=== PATIENT | female | born 1955 | race Caucasian/White ===

== ENCOUNTER 2024-02-29 14:50 | Outpatient (CLI) | payer OTHER ==
[2024-02-29 15:16] LABS: PH,URINE 5.5 (5.0-8.0); URINE APPEARANCE Cloudy; URINE BILIRRUBIN Negative (NEGATIVE); URINE BLOOD NHT; URINE COLOR Yellow; URINE GLUCOSE Negative (NEGATIVE); URINE KETONE Negative (NEGATIVE); URINE LEUKOCYTE Large; URINE NITRATE Negative; URINE PROTEIN Negative (NEGATIVE); URINE UROBILINOGEN 0.2 E.U./dl
[2024-02-29 15:19] LABS: URINE BACTERIA 1418.7 uL (0.0-1933); URINE RBC 13.7 uL (0.0-20.8); URINE WBC 1039.4 uL (0.0-23.2)
[2024-02-29 15:50] LABS: URINE CAST 0.61 uL (0.0-1.40)
== END 2024-02-29 14:55 | disposition home or self-care (01) ==
LOC: LAB 14:50
PROVIDERS: ATTEND Urology
DX: N39.0 Urinary tract infection, site not specified (principal)

== ENCOUNTER 2024-03-03 11:56 | Inpatient (IN) | payer OTHER ==
[~2024-03-03] VITALS: Ht 157.5 cm; Wt 68.9 kg
[2024-03-03] MEDS ORDERED: CARVEDILOL12.5 MG (14:45)
[2024-03-03] MEDS ORDERED: LANOXIN125 MCG PO (14:46)
[2024-03-03] MEDS ORDERED: LASIX20 MG PO (14:46)
[2024-03-03] MEDS ORDERED: HYDRALAZINE HCL50 MG PO (14:46)
[2024-03-03] MEDS ORDERED: ATORVASTATIN CA80 MG PO (14:47)
[2024-03-06] MEDS ORDERED: CEFTRIAXONE SODIUM 2,000 MG VIAL IV ONE (08:30)
[2024-03-06] MEDS ORDERED: BUPIVACAINE HCL 30 ML VIAL IJ ONE (08:30)
[2024-03-06] MEDS ORDERED: LIDOCAINE HCL 1%/EPINEPHRINE 20ML VIAL IJ ONE (08:30)
[2024-03-06] MEDS ORDERED: METRONIDAZOLE/SODIUM CHLORIDE 500 MG/100 ML PIGGYBACK IV ONE (08:30)
[2024-03-06] MEDS ORDERED: MORPHINE SULFATE 4 MG/ML CARTRIDGE IV PRN (09:15)
[2024-03-06] MEDS ORDERED: 0.9 % SODIUM CHLORIDE 1,000 ML IV SCH (09:15)
[2024-03-06] MEDS ORDERED: DEXTROSE 50 % IN WATER 0.5 G/ML DISP.SYRIN IV PRN (09:15)
[2024-03-06] MEDS ORDERED: ONDANSETRON HCL 2 MG/ML VIAL IV PRN (09:15)
[2024-03-06] MEDS ORDERED: SUGAMMADEX SODIUM 200 MG/2 ML VIAL IV ONE (09:15)
[2024-03-06] MEDS ORDERED: OxyCODONE HCL 5 MG TABLET (ROXICODONE) PO PRN (09:15)
[2024-03-06] MEDS ORDERED: MORPHINE SULFATE 4 MG/ML VIAL IV ONE ×2 (10:05→10:35)
[2024-03-06] MEDS ORDERED: ONDANSETRON HCL 2 MG/ML VIAL IV ONE (10:55)
[2024-03-06 11:37] LABS: HEMATOCRIT 34.4 % (36.0-45.00); MEAN CORPUSCULAR HEMOGLOBIN 26.5 pg (27.00-32.0); MEAN CORPUSCULAR HGB CONC 31.9 g/dl (32.0-36.0); PLATELET COUNT 425 K/uL (150-450); RED BLOOD COUNT 4.15 M/uL (4.00-6.00)
[2024-03-06 12:53] LABS: ALBUMIN 2.8 gm/dL (3.4-5.0); CALCIUM 8.9 mg/dL (8.5-10.1); CREATININE SERUM 0.83 mg/dL (0.55-1.02); GFR 67.96; MAGNESIUM 1.9 mg/dL (1.8-2.4); PHOSPHOROUS 2.8 mg/dL (2.5-4.9); POTASSIUM 4.32 mEq/L (3.5-5.1)
[2024-03-06] MEDS ORDERED: HYOSCYAMINE SULFATE 0.125 MG TAB.SUBL SL SCH (13:00)
[2024-03-06] MEDS ORDERED: ACETAMINOPHEN 500 MG GEL..CAP PO SCH (14:00)
[2024-03-06] MEDS ORDERED: ENALAPRILAT DIHYDRATE 1.25 MG/ML VIAL IV PRN (14:30)
[2024-03-06] MEDS ORDERED: POLYETHYLENE GLYCOL 3350 17 GM BLIST.PACK PO SCH (17:00)
[2024-03-06] MEDS ORDERED: METRONIDAZOLE/SODIUM CHLORIDE 500 MG/100 ML PIGGYBACK IV SCH (17:00)
[2024-03-06] MEDS ORDERED: GABAPENTIN 300 MG CAPSULE PO SCH (17:00)
[2024-03-06 17:11] VITALS: BP 123/67; O2SAT 97
[2024-03-06 20:55] LABS: ABG PH 7.413 (7.35-7.45); ABG PO2 71.2 mmHg (80-100); ABG pCO2 34.7 mmHg (35-45); BASE EXCESS -2.2 mmol/l; BICARBONATE 21.6 mmol/l (23-25); SaO2 94.2 %; Tco2 22.7 mmol/l
[2024-03-06] MEDS ORDERED: CELECOXIB 200 MG CAPSULE PO SCH (21:00)
[2024-03-06] MEDS ORDERED: FAMOTIDINE/PF 20 MG/2 ML VIAL IV PUSH SCH (21:00)
[2024-03-06] MEDS ORDERED: CARVEDILOL 12.5 MG TABLET PO SCH (21:00)
[2024-03-06 21:14] LABS: allen test SATISFACTORY; o2 21 %; puncture site RADIAL LEFT
[2024-03-06 23:45] VITALS: BP 102/59; O2SAT 93
[2024-03-07] VITALS (7 sets, daily range): BP systolic 99–100; BP diastolic 52–63; O2SAT 93–98
[2024-03-07 08:02] LABS: HEMATOCRIT 31.5 % (36.0-45.00); HEMOGLOBIN 10.2 g/dL (12.0-15.00); MEAN CELL VOLUME 82.9 fL (80.00-100.00); MEAN CORPUSCULAR HEMOGLOBIN 26.8 pg (27.00-32.0); MEAN CORPUSCULAR HGB CONC 32.4 g/dl (32.0-36.0); PLATELET COUNT 376 K/uL (150-450)
[2024-03-07] MEDS ORDERED: FUROsemide 20 MG TABLET PO SCH (09:00)
[2024-03-07] MEDS ORDERED: DIGOXIN 0.125 MG TABLET PO SCH (09:00)
[2024-03-07 09:05] LABS: ALBUMIN 2.8 gm/dL (3.4-5.0); CALCIUM 9.1 mg/dL (8.5-10.1); CREATININE SERUM 0.74 mg/dL (0.55-1.02); GFR 77.59; MAGNESIUM 1.9 mg/dL (1.8-2.4); PHOSPHOROUS 2.8 mg/dL (2.5-4.9); POTASSIUM 4.43 mEq/L (3.5-5.1)
[2024-03-07] MEDS ORDERED: Cyanocobalamin/Mecobalamin 1 TAB.SL SL NR (12:00)
[2024-03-07] MEDS ORDERED: SOD FERRIC GLUC COMPLX/SUCROSE 62.5 MG/5 ML AMPUL IV NR (12:00)
[2024-03-07] MEDS ORDERED: ATORVASTATIN CALCIUM 40 MG TABLET PO SCH (17:00)
[2024-03-07] MEDS ORDERED: ENOXAPARIN SODIUM 40 MG/0.4 ML SYRINGE SUBCUTANEO SCH (17:00)
[2024-03-07] MEDS ORDERED: GABAPENTIN 100 MG CAPSULE PO SCH (17:00)
[2024-03-07] MEDS ORDERED: GABAPENTIN 300 MG CAPSULE PO SCH (21:00)
[2024-03-08] VITALS (9 sets, daily range): BP systolic 94–133; BP diastolic 59–76; O2SAT 87–99
[2024-03-08 07:52] LABS: HEMATOCRIT 28.1 % (36.0-45.00); HEMOGLOBIN 9.1 g/dL (12.0-15.00); MEAN CELL VOLUME 83.4 fL (80.00-100.00); MEAN CORPUSCULAR HEMOGLOBIN 27.1 pg (27.00-32.0); MEAN CORPUSCULAR HGB CONC 32.5 g/dl (32.0-36.0); PLATELET COUNT 343 K/uL (150-450); RED BLOOD COUNT 3.37 M/uL (4.00-6.00); RED CELL DISTRIBUTION WIDTH 20.4 % (11.5-14.5)
[2024-03-08 07:53] LABS: CALCIUM 8.5 mg/dL (8.5-10.1); CREATININE SERUM 0.81 mg/dL (0.55-1.02); GFR 69.9; MAGNESIUM 1.8 mg/dL (1.8-2.4); PHOSPHOROUS 2.7 mg/dL (2.5-4.9); POTASSIUM 3.89 mEq/L (3.5-5.1)
[2024-03-08] MEDS ORDERED: ENOXAPARIN SODIUM 40 MG/0.4 ML SYRINGE SUBCUTANEO SCH (09:00)
[2024-03-08] MEDS ORDERED: SOD FERRIC GLUC COMPLX/SUCROSE 62.5 MG in 0.9 % SODIUM CHLORIDE 50 ML IV SCH (09:00)
[2024-03-08] MEDS ORDERED: Cyanocobalamin/Mecobalamin 1 TAB.SL SL SCH (09:00)
[2024-03-08] MEDS ORDERED: MORPHINE SULFATE 4 MG/ML CARTRIDGE IV PRN (17:30)
[2024-03-08] MEDS ORDERED: OxyCODONE HCL 5 MG TABLET (ROXICODONE) PO PRN (17:30)
[2024-03-09] VITALS (10 sets, daily range): BP systolic 107–125; BP diastolic 58–67; O2SAT 90–100
[2024-03-09] MEDS ORDERED: PIPERACILLIN/TAZOBACTAM SODIUM 3.375 GM in 0.9 % SODIUM CHLORIDE 100 ML IV SCH (09:33)
[2024-03-09] MEDS ORDERED: MEPERIDINE HCL/PF 25 MG/ML VIAL IV PRN (13:45)
[2024-03-09] MEDS ORDERED: DILTIAZEM HCL 125 MG in 0.9 % SODIUM CHLORIDE 100 ML IV SCH (16:15)
[2024-03-09] MEDS ORDERED: AA 4.25%/CALCIUM/LYTES/DEX 10% 1,000 ML CENTRAL SCH (17:00)
[2024-03-10] VITALS (10 sets, daily range): BP systolic 97–130; BP diastolic 55–73; O2SAT 90–100
[2024-03-10 06:16] LABS: HEMATOCRIT 33.7 % (36.0-45.00); MEAN CELL VOLUME 83.2 fL (80.00-100.00); MEAN CORPUSCULAR HEMOGLOBIN 27.1 pg (27.00-32.0); MEAN CORPUSCULAR HGB CONC 32.6 g/dl (32.0-36.0); PLATELET COUNT 436 K/uL (150-450); RED BLOOD COUNT 4.06 M/uL (4.00-6.00); RED CELL DISTRIBUTION WIDTH 20.5 % (11.5-14.5)
[2024-03-10 06:54] LABS: ALBUMIN 2.2 gm/dL (3.4-5.0); CALCIUM 8.7 mg/dL (8.5-10.1); CREATININE SERUM 1.8 mg/dL (0.55-1.02); GFR 27.82; MAGNESIUM 2.2 mg/dL (1.8-2.4); PHOSPHOROUS 3.9 mg/dL (2.5-4.9); POTASSIUM 4.29 mEq/L (3.5-5.1)
[2024-03-10] MEDS ORDERED: MORPHINE SULFATE 4 MG/ML CARTRIDGE IV PRN (19:00)
[2024-03-11] VITALS (7 sets, daily range): BP systolic 108–137; BP diastolic 53–77; O2SAT 74–98
[2024-03-11 06:24] LABS: HEMATOCRIT 29.7 % (36.0-45.00); HEMOGLOBIN 9.7 g/dL (12.0-15.00); MEAN CELL VOLUME 81.6 fL (80.00-100.00); MEAN CORPUSCULAR HEMOGLOBIN 26.6 pg (27.00-32.0); MEAN CORPUSCULAR HGB CONC 32.6 g/dl (32.0-36.0); PLATELET COUNT 441 K/uL (150-450); RED BLOOD COUNT 3.64 M/uL (4.00-6.00); RED CELL DISTRIBUTION WIDTH 20.8 % (11.5-14.5)
[2024-03-11] MEDS ORDERED: DIATRIZOATE MEGLUMINE, SODIUM 30 ML BOTTLE PO NR (06:30)
[2024-03-11 06:55] LABS: ALBUMIN 2.2 gm/dL (3.4-5.0); BILIRUBIN TOTAL 0.2 mg/dL (0.3-1.2); CALCIUM 8.5 mg/dL (8.5-10.1); CREATININE SERUM 1.04 mg/dL (0.55-1.02); GFR 52.39; GLOBULINA 3.2 G/DL (2.4-3.5); MAGNESIUM 2.1 mg/dL (1.8-2.4); PHOSPHOROUS 2.8 mg/dL (2.5-4.9); POTASSIUM 3.89 mEq/L (3.5-5.1); TOTAL PROTEIN 5.4 gm/dL (6.4-8.2)
[2024-03-12] VITALS (7 sets, daily range): BP systolic 90–152; BP diastolic 54–75; O2SAT 90–100
[2024-03-12 06:47] LABS: HEMATOCRIT 30.3 % (36.0-45.00); HEMOGLOBIN 9.8 g/dL (12.0-15.00); MEAN CELL VOLUME 81.8 fL (80.00-100.00); MEAN CORPUSCULAR HEMOGLOBIN 26.5 pg (27.00-32.0); MEAN CORPUSCULAR HGB CONC 32.4 g/dl (32.0-36.0); PLATELET COUNT 447 K/uL (150-450); RED CELL DISTRIBUTION WIDTH 20.6 % (11.5-14.5)
[2024-03-12 07:07] LABS: ALBUMIN 2.5 gm/dL (3.4-5.0); BILIRUBIN TOTAL 0.25 mg/dL (0.3-1.2); CALCIUM 8.7 mg/dL (8.5-10.1); CREATININE SERUM 0.73 mg/dL (0.55-1.02); GFR 78.81; GLOBULINA 3.4 G/DL (2.4-3.5); MAGNESIUM 2.1 mg/dL (1.8-2.4); PHOSPHOROUS 2.1 mg/dL (2.5-4.9); POTASSIUM 3.71 mEq/L (3.5-5.1); TOTAL PROTEIN 5.9 gm/dL (6.4-8.2)
[2024-03-12 07:19] LABS: T4 TOTAL 9.38 UG/DL (4.8-13.9); TSH 1.44 uIU/mL (0.358-3.74)
[2024-03-12] MEDS ORDERED: FUROsemide 20 MG/2 ML VIAL IV NR (08:30)
[2024-03-12] MEDS ORDERED: PHENOL 177 ML BOTTLE MM SCH (09:00)
[2024-03-12] MEDS ORDERED: EMOLLIENTS 6 OZ BOTTLE TOP SCH (09:00)
[2024-03-12] MEDS ORDERED: CARVEDILOL 12.5 MG TABLET PO STA (10:42)
[2024-03-12] MEDS ORDERED: POTASSIUM PHOS,M-BASIC-D-BASIC 3 MM/ML VIAL IV NR (10:45)
[2024-03-12] MEDS ORDERED: DEXTROSE 5 % IN WATER 1,000 ML IV SCH (11:00)
[2024-03-13] VITALS (8 sets, daily range): BP systolic 104–131; BP diastolic 61–69; O2SAT 95–100
[2024-03-14] VITALS (9 sets, daily range): BP systolic 121–140; BP diastolic 65–81; O2SAT 91–100
[2024-03-14 07:43] LABS: HEMATOCRIT 25.3 % (36.0-45.00); MEAN CELL VOLUME 84.1 fL (80.00-100.00); MEAN CORPUSCULAR HGB CONC 32.6 g/dl (32.0-36.0); PLATELET COUNT 343 K/uL (150-450); RED BLOOD COUNT 3.01 M/uL (4.00-6.00); RED CELL DISTRIBUTION WIDTH 21.1 % (11.5-14.5)
[2024-03-14 07:52] LABS: CALCIUM 7.7 mg/dL (8.5-10.1); CREATININE SERUM 0.55 mg/dL (0.55-1.02); GFR 109.27; MAGNESIUM 1.9 mg/dL (1.8-2.4); PHOSPHOROUS 2.1 mg/dL (2.5-4.9); POTASSIUM 3.76 mEq/L (3.5-5.1)
[2024-03-14 08:04] LABS: HEMOGLOBIN 8.3 g/dL (12.0-15.00); MEAN CORPUSCULAR HEMOGLOBIN 27.5 pg (27.00-32.0)
[2024-03-14] MEDS ORDERED: POTASSIUM PHOS,M-BASIC-D-BASIC 3 MM/ML VIAL IV ONE (12:00)
[2024-03-14] MEDS ORDERED: FUROsemide 20 MG/2 ML VIAL IV SCH (12:30)
[2024-03-15] VITALS (10 sets, daily range): BP systolic 103–158; BP diastolic 65–87; O2SAT 90–98
[2024-03-15 02:43] LABS: ob POSITIVE (NEGATIVE)
[2024-03-15] MEDS ORDERED: LACTOBACILLUS ACIDOPHILUS 1 CAP CAP PO SCH (09:00)
[2024-03-15 11:42] LABS: CALCIUM 8.4 mg/dL (8.5-10.1); CREATININE SERUM 0.69 mg/dL (0.55-1.02); GFR 84.11; MAGNESIUM 1.7 mg/dL (1.8-2.4); PHOSPHOROUS 2.4 mg/dL (2.5-4.9); POTASSIUM 4.45 mEq/L (3.5-5.1)
[2024-03-15 11:54] LABS: HEMOGLOBIN 12.7 g/dL (12.0-15.00); MEAN CELL VOLUME 83.3 fL (80.00-100.00); MEAN CORPUSCULAR HEMOGLOBIN 27.2 pg (27.00-32.0); MEAN CORPUSCULAR HGB CONC 32.6 g/dl (32.0-36.0); PLATELET COUNT 440 K/uL (150-450); RED BLOOD COUNT 4.68 M/uL (4.00-6.00); RED CELL DISTRIBUTION WIDTH 20.5 % (11.5-14.5)
[2024-03-15] MEDS ORDERED: POTASSIUM PHOS,M-BASIC-D-BASIC 3 MM/ML VIAL IV NR (13:45)
[2024-03-15] MEDS ORDERED: MAGNESIUM SULFATE IN WATER 50 ML IV NR (13:45)
[2024-03-15] MEDS ORDERED: METOCLOPRAMIDE HCL 5 MG/ML VIAL IV SCH (17:00)
[2024-03-16] VITALS (8 sets, daily range): BP systolic 114–120; BP diastolic 64–66; O2SAT 98–100
[2024-03-16] MEDS ORDERED: PANTOPRAZOLE SODIUM 40 MG/VIAL VIAL IV PUSH ONE (03:00)
[2024-03-16] MEDS ORDERED: 0.9 % SODIUM CHLORIDE 500 ML IV ONE (06:00)
[2024-03-16] MEDS ORDERED: 0.9 % SODIUM CHLORIDE 1,000 ML IV SCH (08:15)
[2024-03-16] MEDS ORDERED: METOCLOPRAMIDE HCL 5 MG/ML VIAL IV SCH (09:00)
[2024-03-16] MEDS ORDERED: DILTIAZEM HCL 125 MG in 0.9 % SODIUM CHLORIDE 100 ML IV SCH (11:30)
[2024-03-16] MEDS ORDERED: AA 4.25%/CALCIUM/LYTES/DEX 10% 1,000 ML CENTRAL SCH (17:00)
[2024-03-17] VITALS (10 sets, daily range): BP systolic 109–138; BP diastolic 65–73; O2SAT 96–100
[2024-03-17 07:02] LABS: HEMATOCRIT 35.4 % (36.0-45.00); HEMOGLOBIN 11.6 g/dL (12.0-15.00); MEAN CELL VOLUME 84.7 fL (80.00-100.00); MEAN CORPUSCULAR HEMOGLOBIN 27.8 pg (27.00-32.0); MEAN CORPUSCULAR HGB CONC 32.8 g/dl (32.0-36.0); PLATELET COUNT 433 K/uL (150-450); RED BLOOD COUNT 4.18 M/uL (4.00-6.00); RED CELL DISTRIBUTION WIDTH 20.2 % (11.5-14.5)
[2024-03-17 07:32] LABS: CALCIUM 8.4 mg/dL (8.5-10.1); CREATININE SERUM 0.48 mg/dL (0.55-1.02); GFR 127.86; PHOSPHOROUS 2.3 mg/dL (2.5-4.9); POTASSIUM 4.16 mEq/L (3.5-5.1)
[2024-03-17 15:12] LABS: ALBUMIN 2.3 gm/dL (3.4-5.0); BILIRUBIN TOTAL 0.31 mg/dL (0.3-1.2); BILIRUBIN,CONJUGATED 0.1 mg/dL (0.0-0.2); BILIRUBIN,UNCONJUGATED 0.21 mg/dL (0.0-0.6); CHOL HDL RATIO 4.1 (0-5.0); TOTAL PROTEIN 5.6 gm/dL (6.4-8.2)
[2024-03-17 15:14] LABS: INR 1.06; PARTIAL THROMBOPLASTIN TIME 31.6 SECONDS (22.0-34.0); PROTHROMBIN TIME 11.5 SECONDS (9.0-11.5)
[2024-03-17] MEDS ORDERED: AMINO ACIDS 4.25%/DEXTROSE 10% 1,000 ML CENTRAL SCH (17:00)
[2024-03-18] VITALS (8 sets, daily range): BP systolic 118–158; BP diastolic 72–89; O2SAT 93–100
[2024-03-18] MEDS ORDERED: DIATRIZOATE MEGLUMINE, SODIUM 30 ML BOTTLE PO NR (08:00)
[2024-03-18] MEDS ORDERED: MULTIVIT INFUSN,ADULT 4,VIT K 10 ML VIAL IV NR (10:00)
[2024-03-18] MEDS ORDERED: THIAMINE HCL 100 MG/ML 2 ML VIAL IV NR (10:00)
[2024-03-19] VITALS (7 sets, daily range): BP systolic 132–153; BP diastolic 79–84; O2SAT 98–100
[2024-03-19 07:07] LABS: HEMATOCRIT 29.3 % (36.0-45.00); HEMOGLOBIN 9.5 g/dL (12.0-15.00); MEAN CELL VOLUME 85.5 fL (80.00-100.00); MEAN CORPUSCULAR HEMOGLOBIN 27.8 pg (27.00-32.0); MEAN CORPUSCULAR HGB CONC 32.5 g/dl (32.0-36.0); PLATELET COUNT 256 K/uL (150-450); RED BLOOD COUNT 3.43 M/uL (4.00-6.00); RED CELL DISTRIBUTION WIDTH 20.5 % (11.5-14.5)
[2024-03-19 07:54] LABS: ALBUMIN 1.7 gm/dL (3.4-5.0); BILIRUBIN TOTAL 0.19 mg/dL (0.3-1.2); CALCIUM 6.8 mg/dL (8.5-10.1); GLOBULINA 2.2 G/DL (2.4-3.5); MAGNESIUM 1.5 mg/dL (1.8-2.4); TOTAL PROTEIN 3.9 gm/dL (6.4-8.2)
[2024-03-19 08:18] LABS: GFR 372.57; PHOSPHOROUS 1.3 mg/dL (2.5-4.9)
[2024-03-19 08:19] LABS: CREATININE SERUM 0.19 mg/dL (0.55-1.02); POTASSIUM 2.84 mEq/L (3.5-5.1)
[2024-03-19] MEDS ORDERED: MULTIVIT INFUSN,ADULT 4,VIT K 10 ML VIAL IV SCH (09:00)
[2024-03-19] MEDS ORDERED: THIAMINE HCL 100 MG/ML 2 ML VIAL IV SCH (09:00)
[2024-03-19] MEDS ORDERED: DEXTROSE 5 % IN WATER 1,000 ML IV SCH (10:15)
[2024-03-19] MEDS ORDERED: MAGNESIUM SULFATE IN WATER 50 ML IV NR (11:00)
[2024-03-19] MEDS ORDERED: AMINO ACIDS 1 EACH TABLET PO NR (11:00)
[2024-03-19] MEDS ORDERED: POTASSIUM PHOS,M-BASIC-D-BASIC 3 MM/ML VIAL IV ONE (11:00)
[2024-03-19] MEDS ORDERED: SOD FERRIC GLUC COMPLX/SUCROSE 62.5 MG/5 ML AMPUL IV NR (11:00)
[2024-03-19] MEDS ORDERED: AMINO ACIDS 1 EACH TABLET PO SCH (17:00)
[2024-03-19] MEDS ORDERED: POTASSIUM CHLORIDE 20MEQ/100ML H2O PB IV NR (17:00)
[2024-03-20] VITALS (7 sets, daily range): BP systolic 119–141; BP diastolic 67–78; O2SAT 18–100
[2024-03-20] MEDS ORDERED: SOD FERRIC GLUC COMPLX/SUCROSE 62.5 MG in 0.9 % SODIUM CHLORIDE 50 ML IV SCH (09:00)
[2024-03-20 11:28] LABS: HEMATOCRIT 39.2 % (36.0-45.00); HEMOGLOBIN 12.6 g/dL (12.0-15.00); MEAN CELL VOLUME 85.5 fL (80.00-100.00); MEAN CORPUSCULAR HEMOGLOBIN 27.4 pg (27.00-32.0); PLATELET COUNT 428 K/uL (150-450); RED BLOOD COUNT 4.59 M/uL (4.00-6.00); RED CELL DISTRIBUTION WIDTH 20.9 % (11.5-14.5)
[2024-03-20 12:11] LABS: CALCIUM 8.9 mg/dL (8.5-10.1); CREATININE SERUM 0.45 mg/dL (0.55-1.02); GFR 137.74; POTASSIUM 3.95 mEq/L (3.5-5.1)
[2024-03-20 12:17] LABS: PHOSPHOROUS 1.9 mg/dL (2.5-4.9)
[2024-03-20] MEDS ORDERED: POTASSIUM PHOS,M-BASIC-D-BASIC 3 MM/ML VIAL IV NR (12:30)
[2024-03-20] MEDS ORDERED: LORATADINE 10 MG TABLET PO STA (14:49)
[2024-03-21] VITALS (9 sets, daily range): BP systolic 98–120; BP diastolic 66–84; O2SAT 90–98
[2024-03-22] VITALS: BP 132/55; O2SAT 97
[2024-03-22 08:00] VITALS: BP 105/59; O2SAT 96
[2024-03-22 13:21] VITALS: O2SAT 99
[2024-03-22 16:00] VITALS: BP 122/65; O2SAT 98
[2024-03-22 17:20] VITALS: O2SAT 97
[2024-03-22 18:21] LABS: PH,URINE 5.5 (5.0-8.0); URINE APPEARANCE Clear; URINE BILIRRUBIN Negative (NEGATIVE); URINE BLOOD Negative; URINE COLOR Yellow; URINE GLUCOSE Negative (NEGATIVE); URINE KETONE Negative (NEGATIVE); URINE LEUKOCYTE Negative; URINE NITRATE Negative; URINE PROTEIN Negative (NEGATIVE); URINE UROBILINOGEN 0.2 E.U./dl
[2024-03-22 18:24] LABS: URINE BACTERIA 16.3 uL (0.0-1933); URINE EPITHELIAL CELLS 5.5 uL (0.0-38.8)
[2024-03-22 18:30] LABS: URINE RBC 1.5 uL (0.0-20.8)
[2024-03-22 20:38] VITALS: O2SAT 98
[2024-03-23] VITALS: BP 125/62; O2SAT 97
[2024-03-23 00:55] VITALS: O2SAT 98
[2024-03-23 03:38] VITALS: O2SAT 99
[2024-03-23 09:01] VITALS: O2SAT 97
[2024-03-23] MEDS ORDERED: CIPRO500 MG PO (09:35)
[2024-03-23 10:49] VITALS: BP 99/64; O2SAT 100
== END 2024-03-23 12:27 | disposition home or self-care (01) | DRG 330 ==
LOC: SURH 03-06 12:15 → SURG 03-06 12:48 → O/R 03-06 12:48 → SURG 03-06 13:33 → SURH 03-06 22:00 → SURG 03-23 12:27
PROVIDERS: Internal Medicine Geriatric Medicine; Internal Medicine Infectious Disease; Specialist; Surgery; ADMIT Surgery; ATTEND Surgery
PROC: 07BC4ZX Excision of Pelvis Lymphatic, Percutaneous Endoscopic Approach, Diagnostic (ICD-10-PCS; 2024-03-06)
PROC: 0DTF4ZZ Resection of Right Large Intestine, Percutaneous Endoscopic Approach (ICD-10-PCS; principal; 2024-03-06 22:00)
PROC: 4A12X4Z Monitoring of Cardiac Electrical Activity, External Approach (ICD-10-PCS; 2024-03-07)
PROC: 0D9670Z Drainage of Stomach with Drainage Device, Via Natural or Artificial Opening (ICD-10-PCS; 2024-03-09)
PROC: 3E0G76Z Introduction of Nutritional Substance into Upper GI, Via Natural or Artificial Opening (ICD-10-PCS; 2024-03-09)
PROC: B24BYZZ Ultrasonography of Heart with Aorta using Other Contrast (ICD-10-PCS; 2024-03-09)
PROC: 02HV33Z Insertion of Infusion Device into Superior Vena Cava, Percutaneous Approach (ICD-10-PCS; 2024-03-09)
PROC: BW21YZZ Computerized Tomography (CT Scan) of Abdomen and Pelvis using Other Contrast (ICD-10-PCS; 2024-03-11)
PROC: 30243N1 Transfusion of Nonautologous Red Blood Cells into Central Vein, Percutaneous Approach (ICD-10-PCS; 2024-03-14)
PROC: BW21YZZ Computerized Tomography (CT Scan) of Abdomen and Pelvis using Other Contrast (ICD-10-PCS; 2024-03-18)
DX: D37.4 Neoplasm of uncertain behavior of colon (principal); N17.9 Acute kidney failure, unspecified; D50.0 Iron deficiency anemia secondary to blood loss (chronic); R59.0 Localized enlarged lymph nodes; I10 Essential (primary) hypertension; I48.91 Unspecified atrial fibrillation

== ENCOUNTER 2025-03-17 01:25 | Inpatient (IN) | payer OTHER ==
[~2025-03-17] VITALS: Ht 157.5 cm; Wt 63.5 kg
[~2025-03-17 01:25] MED LIST: ATORVASTATIN CA80 MG PO; CARVEDILOL12.5 MG; CIPRO500 MG PO; HYDRALAZINE HCL50 MG PO; LANOXIN125 MCG PO; LASIX20 MG PO
[2025-03-17] MEDS ORDERED: ELIQUIS5 MG PO (01:40)
[2025-03-17] MEDS ORDERED: AMLODIPINE BESY10 MG PO (01:40)
[2025-03-17] MEDS ORDERED: CARVEDILOL12.5 M1 PO (01:40)
[2025-03-17] MEDS ORDERED: ISOSORBIDE MONO30 M2 PO (01:40)
[2025-03-17] MEDS ORDERED: PANTOPRAZOLE SO40 MG PO (01:41)
[2025-03-17] MEDS ORDERED: DIGOXIN125 MCG PO (01:41)
[2025-03-17] MEDS ORDERED: IRBESARTAN300 MG PO (01:41)
[2025-03-17] MEDS ORDERED: HYDRALAZINE HC100 MG PO (01:41)
[2025-03-17] MEDS ORDERED: MIDAZOLAM H IJ (01:41)
--- NOTE | 2025-03-17 01:42 | NUR ---
PTE LLEGA EN AMBULANCIA POR OBSTRUCIONE INTESTINAL DECON NASOGASTRICO Y CON IVF'S/ SE LE JAGJIT S/V Y SE UBICA EN CAMA CON BARANDAS ELEVADAS. PTE DEL REFUGIO JOHNSON.
[2025-03-17] MEDS ORDERED: FAMOTIDINE/PF 20 MG/2 ML VIAL IV ONE (02:15)
[2025-03-17] MEDS ORDERED: 0.9 % SODIUM CHLORIDE 1,000 ML IV SCH ×2 (02:15→07:45)
[2025-03-17] MEDS ORDERED: ONDANSETRON HCL 2 MG/ML VIAL ONE (02:55)
[2025-03-17] MEDS ORDERED: FAMOTIDINE/PF 20 MG/2 ML VIAL ONE ×2 (02:56→08:19)
[2025-03-17] MEDS ORDERED: PIPERACILLIN/TAZOBACTAM SODIUM 3.375 GM VIAL IV ONE (02:56)
[2025-03-17] MEDS ORDERED: LEVALBUTEROL HCL 0.63 MG/3 ML SOLUTION IH SCH (03:55)
[2025-03-17] MEDS ORDERED: METHYLPREDNISOLONE SOD SUCC 40 MG VIAL IV SCH (03:56)
[2025-03-17 04:26] LABS: ERYTHROCYTE SEDIMENTATION RATE 80 mm/hr (0-30)
[2025-03-17 04:35] LABS: ALT/SGPT 29.0 U/L (12-78); AST/SGOT 14.0 U/L (15-37); BILIRUBIN TOTAL 0.76 mg/dL (0.3-1.2); BUN CREA RATIO 40.0 (7.0-25.0); CREATININE SERUM 1.03 mg/dL (0.55-1.02); GFR 52.82; GLOBULINA 4.0 G/DL (2.4-3.5); GLUCOSE FASTING 134.0 mg/dL (65-100); OSMOLALITY SERUM 301.0 MOSM/KG (275-295)
[2025-03-17 04:44] LABS: BASO % 0.1 % (0.1-1.2); EOS # 0.00 (0.04-0.54); EOS % 0.0 % (0.7-7.0); LYMPH # 0.86 (1.18-3.74); LYMPH % 8.4 % (19.3-53.1); MEAN PLATELET VOLUME 9.30 fl (9.4-12.4); MONO # 0.64 (0.24-0.82); MONO % 6.3 % (4.7-12.5); NEUT # 8.66 (1.56-6.13); NEUT % 84.6 % (34.0-71.1); RED CELL DISTRIBUTION WIDTH 17.4 % (11.6-14.4)
[2025-03-17 04:48] LABS: INR 1.17
[2025-03-17 05:19] LABS: BAND MAN 12.0 %; LYMPHOCYTE MAN 8.0 %; MONOCYTE MAN 6.0 %; NEUTROPHILS MAN 74.0 %
[2025-03-17] MEDS ORDERED: LEVALBUTEROL HCL 0.63 MG/3 ML SOLUTION IH ONE (05:45)
[2025-03-17] MEDS ORDERED: METHYLPREDNISOLONE SOD SUCC 40 MG VIAL ONE (05:52)
[2025-03-17] MEDS ORDERED: PIPERACILLIN/TAZOBACTAM SODIUM 3.375 GM in 0.9 % SODIUM CHLORIDE 100 ML IV SCH (06:00)
--- NOTE | 2025-03-17 06:46 | NUR ---
RN.ROBBIE ORIENTA A PTE SOBRE TX MEDICO ORDENADO POR . REALIZA JAGJIT DE MUESTRAS MATILDE ORDEN MEDICA Y BAJO MEDIDAS ASEPTICAS. VENOPUNCION PATENTE DELORIS DE EDEMA Y ERITEMA BAJANDO IV LFUIDS POR REGULADOR. PTE PENDIENTE A RESULTADOS DE LAB.
--- NOTE | 2025-03-17 06:52 | NUR ---
3140 PTE ELSA CHRISTIANSEN
[2025-03-17] MEDS ORDERED: MORPHINE SULFATE 4 MG/ML CARTRIDGE IV PRN (07:45)
[2025-03-17] MEDS ORDERED: ONDANSETRON HCL 2 MG/ML VIAL IV SCH (08:00)
[2025-03-17 08:11] VITALS: BP 112/59
[2025-03-17] MEDS ORDERED: ENOXAPARIN SODIUM 40 MG/0.4 ML SYRINGE SUBCUTANEO ONE (08:19)
[2025-03-17 09:00] VITALS: BP 112/75; O2SAT 97
[2025-03-17] MEDS ORDERED: ENOXAPARIN SODIUM 40 MG/0.4 ML SYRINGE SUBCUTANEO SCH (09:00)
[2025-03-17] MEDS ORDERED: FAMOTIDINE/PF 20 MG/2 ML VIAL IV SCH (09:00)
[2025-03-17] MEDS ORDERED: POTASSIUM CHLORIDE 20MEQ/100ML H2O PB IV NR (14:00)
[2025-03-17 16:15] VITALS: BP 111/74; O2SAT 95
[2025-03-17 16:27] LABS: COVID-19 AG NEGATIVE (NEGATIVE)
[2025-03-17] MEDS ORDERED: AZITHROMYCIN 500 MG VIAL IV NR (17:00)
[2025-03-17] MEDS ORDERED: ENOXAPARIN SODIUM 60 MG/0.6 ML SYRINGE SUBCUTANEO SCH (21:00)
[2025-03-18 01:54] VITALS: BP 106/72; O2SAT 95
[2025-03-18 08:00] VITALS: BP 108/70; O2SAT 99
[2025-03-18] MEDS ORDERED: DIATRIZOATE MEGLUMINE, SODIUM 30 ML BOTTLE PO NR (08:30)
[2025-03-18] MEDS ORDERED: POTASSIUM PHOS,M-BASIC-D-BASIC 18 MM in 0.9 % SODIUM CHLORIDE 500 ML IV ONE (14:00)
[2025-03-18] MEDS ORDERED: VANCOMYCIN HCL 1,000 MG VIAL ONE (15:12)
[2025-03-18 15:43] LABS: BASO % 0.2 % (0.1-1.2); EOS # 0.01 (0.04-0.54); EOS % 0.1 % (0.7-7.0); LYMPH # 0.99 (1.18-3.74); LYMPH % 8.3 % (19.3-53.1); MEAN PLATELET VOLUME 9.20 fl (9.4-12.4); MONO # 0.82 (0.24-0.82); MONO % 6.9 % (4.7-12.5); NEUT # 10.01 (1.56-6.13); NEUT % 83.5 % (34.0-71.1); RED CELL DISTRIBUTION WIDTH 17.5 % (11.6-14.4)
[2025-03-18 16:00] VITALS: BP 113/72; O2SAT 97
[2025-03-18 16:32] LABS: ALT/SGPT 27.0 U/L (12-78); AST/SGOT 12.0 U/L (15-37); BILIRUBIN TOTAL 0.6 mg/dL (0.3-1.2); BUN CREA RATIO 51.0 (7.0-25.0); CREATININE SERUM 0.75 mg/dL (0.55-1.02); GFR 76.17; GLOBULINA 3.0 G/DL (2.4-3.5); GLUCOSE FASTING 104.0 mg/dL (65-100)
[2025-03-18] MEDS ORDERED: VANCOMYCIN HCL 1,000 MG VIAL IV SCH (17:00)
[2025-03-18] MEDS ORDERED: AZITHROMYCIN 2 MG/ML REDILUIDO IV SCH (17:00)
[2025-03-18 17:17] LABS: OSMOLALITY SERUM 313.0 MOSM/KG (275-295)
[2025-03-18 18:39] LABS: URINE APPEARANCE Turbid; URINE BILIRRUBIN Negative (NEGATIVE); URINE BLOOD Large; URINE COLOR Yellow; URINE GLUCOSE Negative (NEGATIVE); URINE KETONE 15 (NEGATIVE); URINE LEUKOCYTE Trace; URINE NITRATE Negative; URINE UROBILINOGEN 0.2 E.U./dl
[2025-03-18 18:42] LABS: URINE BACTERIA 119.9 uL (0.0-1933); URINE EPITHELIAL CELLS 13.3 uL (0.0-38.8); URINE RBC 1245.4 uL (0.0-20.8); URINE WBC 8.3 uL (0.0-23.2)
[2025-03-18 18:52] LABS: URINE CAST 0.73 uL (0.0-1.40); URINE PROTEIN 100 (NEGATIVE)
[2025-03-18] MEDS ORDERED: PHENAZOPYRIDINE HCL 100 MG TABLET PO STA (18:53)
[2025-03-18 18:56] LABS: URINE CRYSTALS MANY /HPF; URINE MUCUS SCANT
[2025-03-18 18:57] LABS: TYPE CELLS SQUAMOUS
[2025-03-19 01:39] VITALS: BP 127/78; O2SAT 97
[2025-03-19 08:03] LABS: BASO % 0.2 % (0.1-1.2); EOS # 0.03 (0.04-0.54); EOS % 0.2 % (0.7-7.0); LYMPH # 1.22 (1.18-3.74); LYMPH % 9.7 % (19.3-53.1); MEAN PLATELET VOLUME 9.40 fl (9.4-12.4); MONO # 0.91 (0.24-0.82); MONO % 7.2 % (4.7-12.5); NEUT # 10.25 (1.56-6.13); NEUT % 81.4 % (34.0-71.1); RED CELL DISTRIBUTION WIDTH 17.6 % (11.6-14.4)
[2025-03-19 08:13] LABS: ERYTHROCYTE SEDIMENTATION RATE 52 mm/hr (0-30)
[2025-03-19 08:32] LABS: BUN CREA RATIO 46.0 (7.0-25.0); CREATININE SERUM 0.5 mg/dL (0.55-1.02); GFR 121.62; GLUCOSE FASTING 88.0 mg/dL (65-100)
[2025-03-19 08:38] LABS: OSMOLALITY SERUM 316.0 MOSM/KG (275-295)
[2025-03-19] MEDS ORDERED: DEXTROSE 5 % IN WATER 1,000 ML IV SCH (09:00)
[2025-03-19] MEDS ORDERED: PHENAZOPYRIDINE HCL 100 MG TABLET PO SCH (09:00)
[2025-03-19 09:53] VITALS: BP 144/86; O2SAT 98
[2025-03-19] MEDS ORDERED: SODIUM CL 0.9% 100 ML IV.SOLN IV ONE (10:41)
[2025-03-19 14:21] LABS: BASO % 0.2 % (0.1-1.2); EOS # 0.03 (0.04-0.54); EOS % 0.2 % (0.7-7.0); LYMPH # 1.28 (1.18-3.74); LYMPH % 9.4 % (19.3-53.1); MEAN PLATELET VOLUME 9.40 fl (9.4-12.4); MONO # 0.90 (0.24-0.82); MONO % 6.6 % (4.7-12.5); NEUT # 11.20 (1.56-6.13); NEUT % 81.9 % (34.0-71.1); RED CELL DISTRIBUTION WIDTH 17.3 % (11.6-14.4)
[2025-03-19 15:25] LABS: BUN CREA RATIO 31.0 (7.0-25.0); CREATININE SERUM 0.62 mg/dL (0.55-1.02); GFR 94.89; GLUCOSE FASTING 126.0 mg/dL (65-100)
[2025-03-19 15:55] LABS: OSMOLALITY SERUM 315.0 MOSM/KG (275-295)
[2025-03-19 16:30] VITALS: BP 155/88; O2SAT 100
[2025-03-19] MEDS ORDERED: AMINO ACIDS 1 EACH TABLET PO SCH (17:00)
[2025-03-19] MEDS ORDERED: POTASSIUM PHOS,M-BASIC-D-BASIC 3 MM/ML VIAL IV ONE (17:30)
[2025-03-19] MEDS ORDERED: POTASSIUM CHLORIDE 20MEQ/100ML H2O PB IV NR (21:00)
[2025-03-20 01:11] VITALS: BP 128/69; O2SAT 96
[2025-03-20 06:50] LABS: BASO % 0.2 % (0.1-1.2); EOS # 0.08 (0.04-0.54); EOS % 0.6 % (0.7-7.0); LYMPH # 1.49 (1.18-3.74); LYMPH % 11.3 % (19.3-53.1); MEAN PLATELET VOLUME 9.40 fl (9.4-12.4); MONO # 0.95 (0.24-0.82); MONO % 7.2 % (4.7-12.5); NEUT # 10.31 (1.56-6.13); NEUT % 78.6 % (34.0-71.1); RED CELL DISTRIBUTION WIDTH 17.2 % (11.6-14.4)
[2025-03-20 07:35] LABS: ALT/SGPT 21.0 U/L (12-78); AST/SGOT 13.0 U/L (15-37); BILIRUBIN TOTAL 0.7 mg/dL (0.3-1.2); BUN CREA RATIO 27.0 (7.0-25.0); CREATININE SERUM 0.37 mg/dL (0.55-1.02); GFR 172.16; GLOBULINA 2.8 G/DL (2.4-3.5); GLUCOSE FASTING 136.0 mg/dL (65-100)
[2025-03-20 07:42] LABS: OSMOLALITY SERUM 299.0 MOSM/KG (275-295)
[2025-03-20 08:00] VITALS: BP 141/69; O2SAT 99
[2025-03-20] MEDS ORDERED: APIXABAN 5 MG TABLET PO SCH (09:00)
[2025-03-20] MEDS ORDERED: CARVEDILOL 12.5 MG TABLET PO SCH (09:00)
[2025-03-20] MEDS ORDERED: IRBESARTAN 300 MG TABLET PO SCH (09:00)
[2025-03-20] MEDS ORDERED: ISOSORBIDE MONONITRATE 30 MG TABLET PO SCH (09:00)
[2025-03-20] MEDS ORDERED: DIGOXIN 0.125 MG TABLET PO SCH (09:00)
[2025-03-20] MEDS ORDERED: MAGNESIUM SULFATE IN WATER 50 ML IV NR (09:30)
[2025-03-20] MEDS ORDERED: POTASSIUM CHLORIDE 20MEQ/100ML H2O PB IV SCH (12:00)
[2025-03-20 16:00] VITALS: BP 96/60; O2SAT 100
[2025-03-20] MEDS ORDERED: AMLODIPINE BESYLATE 5 MG TABLET PO SCH (17:00)
[2025-03-20] MEDS ORDERED: POTASSIUM PHOS,M-BASIC-D-BASIC 15 MM in 0.9 % SODIUM CHLORIDE 250 ML IV ONE (17:00)
[2025-03-20] MEDS ORDERED: ATORVASTATIN CALCIUM 40 MG TABLET PO SCH (17:00)
[2025-03-21 01:15] VITALS: BP 121/76; O2SAT 100
[2025-03-21 08:51] VITALS: BP 139/61; O2SAT 98
[2025-03-21 10:45] LABS: BASO % 0.3 % (0.1-1.2); EOS # 0.09 (0.04-0.54); EOS % 0.8 % (0.7-7.0); LYMPH # 2.09 (1.18-3.74); LYMPH % 17.6 % (19.3-53.1); MEAN PLATELET VOLUME 9.50 fl (9.4-12.4); MONO # 0.89 (0.24-0.82); MONO % 7.5 % (4.7-12.5); NEUT # 8.01 (1.56-6.13); NEUT % 67.4 % (34.0-71.1); RED CELL DISTRIBUTION WIDTH 16.9 % (11.6-14.4)
[2025-03-21 11:14] LABS: BUN CREA RATIO 19.0 (7.0-25.0); CREATININE SERUM 0.57 mg/dL (0.55-1.02); GFR 104.56; GLUCOSE FASTING 141.0 mg/dL (65-100); OSMOLALITY SERUM 287.0 MOSM/KG (275-295)
[2025-03-21 12:00] LABS: BAND MAN 2.0 %; LYMPHOCYTE MAN 12.0 %; MONOCYTE MAN 5.0 %; NEUTROPHILS MAN 77.0 %
[2025-03-21] MEDS ORDERED: POTASSIUM PHOS,M-BASIC-D-BASIC 18 MM in 0.9 % SODIUM CHLORIDE 250 ML IV NR (12:00)
[2025-03-21 16:00] VITALS: BP 119/61; O2SAT 99
[2025-03-22 00:15] VITALS: BP 134/76; O2SAT 100
[2025-03-22 08:13] VITALS: BP 133/77; O2SAT 100
[2025-03-22 15:00] VITALS: BP 113/72; O2SAT 95
[2025-03-23] VITALS: BP 136/85; O2SAT 97
[2025-03-23] MEDS ORDERED: VANCOMYCIN HCL 1,000 MG VIAL IV SCH (05:00)
[2025-03-23 08:28] VITALS: BP 165/68; O2SAT 100
[2025-03-23 16:48] VITALS: BP 102/63; O2SAT 96
[2025-03-24 00:30] VITALS: BP 119/78; O2SAT 98
[2025-03-24 07:26] LABS: BASO % 0.8 % (0.1-1.2); EOS # 0.09 (0.04-0.54); EOS % 0.8 % (0.7-7.0); LYMPH # 2.10 (1.18-3.74); LYMPH % 19.8 % (19.3-53.1); MEAN PLATELET VOLUME 9.50 fl (9.4-12.4); MONO # 0.81 (0.24-0.82); MONO % 7.6 % (4.7-12.5); NEUT # 6.52 (1.56-6.13); NEUT % 61.3 % (34.0-71.1); RED CELL DISTRIBUTION WIDTH 17.3 % (11.6-14.4)
[2025-03-24 08:00] VITALS: BP 113/75; O2SAT 100
[2025-03-24 08:09] LABS: BAND MAN 6.0 %; LYMPHOCYTE MAN 13.0 %; MONOCYTE MAN 5.0 %; MYELOCYTE 3.0 %; NEUTROPHILS MAN 71.0 %
[2025-03-24 08:12] LABS: ALT/SGPT 23.0 U/L (12-78); AST/SGOT 14.0 U/L (15-37); BILIRUBIN TOTAL 0.38 mg/dL (0.3-1.2); BUN CREA RATIO 21.0 (7.0-25.0); CREATININE SERUM 0.81 mg/dL (0.55-1.02); GFR 69.7; GLOBULINA 2.8 G/DL (2.4-3.5); GLUCOSE FASTING 116.0 mg/dL (65-100); OSMOLALITY SERUM 289.0 MOSM/KG (275-295)
[2025-03-24] MEDS ORDERED: POTASSIUM PHOS,M-BASIC-D-BASIC 3 MM/ML VIAL IV NR (09:30)
[2025-03-24 16:00] VITALS: BP 122/76; O2SAT 96
[2025-03-24 23:53] VITALS: BP 134/76; O2SAT 97
[2025-03-25 08:00] VITALS: BP 107/60; O2SAT 100
[2025-03-25] MEDS ORDERED: MIRALAX17 GM PO (13:33)
[2025-03-25] MEDS ORDERED: ATORVASTATIN CA80 MG PO (15:14)
[2025-03-25] MEDS ORDERED: ELIQUIS5 MG PO (15:14)
[2025-03-25] MEDS ORDERED: ISOSORBIDE MONO30 M2 PO (15:14)
[2025-03-25] MEDS ORDERED: PRE PROTEIN1 EACH PO (15:14)
[2025-03-25] MEDS ORDERED: HYDRALAZINE HC100 MG PO (15:14)
[2025-03-25] MEDS ORDERED: AMLODIPINE BESYL5 MG PO (15:14)
[2025-03-25] MEDS ORDERED: LASIX20 MG PO (15:14)
[2025-03-25] MEDS ORDERED: LANOXIN125 MCG PO (15:14)
[2025-03-25] MEDS ORDERED: IRBESARTAN300 MG PO (15:14)
[2025-03-25] MEDS ORDERED: PANTOPRAZOLE SO40 MG PO (15:14)
[2025-03-25] MEDS ORDERED: CARVEDILOL12.5 MG PO (15:14)
[2025-03-25] MEDS ORDERED: FUROSEMIDE20 MG PO (15:15)
== END 2025-03-25 18:17 | disposition home or self-care (01) | DRG 388 ==
LOC: ER 01:25 → SURH 07:55
PROVIDERS: Internal Medicine Geriatric Medicine; Internal Medicine Infectious Disease; Physician Assistant Medical; ADMIT Surgery; ATTEND Surgery
PROC: BW24ZZZ Computerized Tomography (CT Scan) of Chest and Abdomen (ICD-10-PCS; principal; 2025-03-17)
PROC: BW21YZZ Computerized Tomography (CT Scan) of Abdomen and Pelvis using Other Contrast (ICD-10-PCS; 2025-03-18)
PROC: 02HV33Z Insertion of Infusion Device into Superior Vena Cava, Percutaneous Approach (ICD-10-PCS; 2025-03-18)
DX: K56.609 Unspecified intestinal obstruction, unspecified as to partial versus complete obstruction (principal); J18.9 Pneumonia, unspecified organism; J81.1 Chronic pulmonary edema; E87.0 Hyperosmolality and hypernatremia; J98.11 Atelectasis; E87.6 Hypokalemia; I48.91 Unspecified atrial fibrillation

== ENCOUNTER 2025-03-28 12:44 | Emergency (ER) | payer OTHER ==
[~2025-03-28] VITALS: Ht 157.5 cm; Wt 63.5 kg
[~2025-03-28 12:44] MED LIST changes: +AMLODIPINE BESY10 MG PO; +AMLODIPINE BESYL5 MG PO; +CARVEDILOL12.5 M1 PO; +CARVEDILOL12.5 MG PO; +DIGOXIN125 MCG PO; +ELIQUIS5 MG PO; +FUROSEMIDE20 MG PO; +HYDRALAZINE HC100 MG PO; +IRBESARTAN300 MG PO; +ISOSORBIDE MONO30 M2 PO; +MIDAZOLAM H IJ; +MIRALAX17 GM PO; +PANTOPRAZOLE SO40 MG PO; +PRE PROTEIN1 EACH PO
[2025-03-28] MEDS ORDERED: ONDANSETRON HCL 4 MG in 0.9 % SODIUM CHLORIDE 50 ML IV ONE (14:15)
[2025-03-28] MEDS ORDERED: FAMOtidine 10 MG/ML (4ML VIAL) IV PUSH ONE (14:15)
[2025-03-28] MEDS ORDERED: ACETAMINOPHEN 500 MG GEL..CAP PO ONE ×2 (14:15→14:37)
[2025-03-28] MEDS ORDERED: 0.9 % SODIUM CHLORIDE 1,000 ML IV SCH (14:15)
[2025-03-28] MEDS ORDERED: ONDANSETRON HCL 2 MG/ML VIAL ONE (14:36)
[2025-03-28] MEDS ORDERED: FAMOTIDINE/PF 20 MG/2 ML VIAL ONE (14:37)
[2025-03-28 16:38] LABS: BASO % 0.6 % (0.1-1.2); EOS # 0.03 (0.04-0.54); EOS % 0.3 % (0.7-7.0); LYMPH # 1.67 (1.18-3.74); LYMPH % 17.8 % (19.3-53.1); MEAN PLATELET VOLUME 8.80 fl (9.4-12.4); MONO # 0.89 (0.24-0.82); MONO % 9.5 % (4.7-12.5); NEUT # 6.35 (1.56-6.13); NEUT % 67.6 % (34.0-71.1); RED CELL DISTRIBUTION WIDTH 18.9 % (11.6-14.4)
[2025-03-28 17:02] LABS: URINE APPEARANCE Clear; URINE BILIRRUBIN Negative (NEGATIVE); URINE BLOOD Negative; URINE COLOR Yellow; URINE GLUCOSE Negative (NEGATIVE); URINE KETONE Negative (NEGATIVE); URINE LEUKOCYTE Negative; URINE NITRATE Negative; URINE PROTEIN Negative (NEGATIVE); URINE UROBILINOGEN 0.2 E.U./dl
[2025-03-28 17:07] LABS: URINE CAST 3.07 uL (0.0-1.40); URINE EPITHELIAL CELLS 8.4 uL (0.0-38.8); URINE RBC 7.3 uL (0.0-20.8)
[2025-03-28 17:11] LABS: INR 1.01
[2025-03-28 17:17] LABS: ALT/SGPT 28.0 U/L (12-78); AST/SGOT 18.0 U/L (15-37); BILIRUBIN TOTAL 0.29 mg/dL (0.3-1.2); BUN CREA RATIO 35.0 (7.0-25.0); CREATININE SERUM 0.79 mg/dL (0.55-1.02); GFR 71.74; GLOBULINA 3.5 G/DL (2.4-3.5); GLUCOSE FASTING 122.0 mg/dL (65-100); OSMOLALITY SERUM 297.0 MOSM/KG (275-295)
[2025-03-28 17:31] LABS: URINE BACTERIA 2.3 uL (0.0-1933); URINE WBC 1.0 uL (0.0-23.2)
[2025-03-28] MEDS ORDERED: ZYRTEC10 MG PO (17:49)
== END 2025-03-28 19:05 | disposition home or self-care (01) ==
LOC: ER 12:44
PROVIDERS: General Practice
DX: R55 Syncope and collapse (principal); I10 Essential (primary) hypertension; I48.91 Unspecified atrial fibrillation; I34.0 Nonrheumatic mitral (valve) insufficiency; M19.90 Unspecified osteoarthritis, unspecified site; G47.33 Obstructive sleep apnea (adult) (pediatric); J44.9 Chronic obstructive pulmonary disease, unspecified
CPT/HCPCS: 36415; 70450; 71046; 93005; 96365; 96366; 99284; J7030